=== PATIENT | female | born 1970 | race Asian ===

== ENCOUNTER 2017-07-29 06:43 | Day surgery (SDC) | payer BC, OTHER ==
[2017-07-28 12:38] LABS: CHLORIDE,CL 105 mmol/L (98-107); SODIUM,NA 141 mmol/L (136-145)
[~2017-07-29 06:43] MED LIST: Sodium Chloride 0.9% 10 ML Syringe FLUSH PRN; Sodium Chloride 0.9% 2.5 ML Syringe FLUSH PRN; ceFAZolin 1 GM in Premix Bag 1 BAG IV ONE
[2017-07-29] MEDS ORDERED: Propofol 200 MG/20 ML SDV ONE (07:16)
[2017-07-29] MEDS ORDERED: Ondansetron 4 MG/2 ML SDV ONE (07:16)
[2017-07-29] MEDS ORDERED: fentaNYL 100 MCG/2 ML SDV ONE (07:16)
[2017-07-29] MEDS ORDERED: Midazolam 1 MG/ML 2 ML SDV ONE (07:16)
[2017-07-29] MEDS ORDERED: Dexamethasone 4 MG/ML 5 ML MDV ONE (07:17)
[2017-07-29] MEDS ORDERED: Sugammadex Sodium 200 MG/2 ML VIAL ONE (07:19)
[2017-07-29] MEDS ORDERED: Fluorescein 5 ML Vial ONE (07:28)
[2017-07-29] MEDS ORDERED: Bupivacaine 0.25% 10 ML SDV ONE (07:28)
[2017-07-29] MEDS: Lactated Ringers 1,000 ML IV SCH ×2 (07:31→12:52)
--- NOTE | 2017-07-29 07:41 | PCM.PREANE ---
Preanesthetic Assessment - Anesthesia/Transfusion/Family Hx Anesthesia History: No Prior Anesthesia Family History of Anesthesia Reaction: No Transfusion History: No Prior Transfusion(s) Intubation History: Unknown - Review of Systems General: No Symptoms Pulmonary: No Symptoms Cardiovascular: No Symptoms Gastrointestinal: No Symptoms Neurological: No Symptoms Other: Reports: None - Physical Assessment O2 Sat by Pulse Oximetry: 95 Respiratory Rate: 16 Vital Signs: Last Vital Signs Temp 36.7 C 07/29/17 07:29 Pulse 61 07/29/17 07:29 Resp 16 07/29/17 07:29 BP 137/72 07/29/17 07:29 Pulse Ox 95 07/29/17 07:29 Height: 1.57 m Weight: 55.792 kg ASA Class: 2 Mental Status: Alert & Oriented x3 Airway Class: Mallampati = 2 Dentition: Reports: Normal Dentition Thyro-Mental Finger Breadths: 2 Mouth Opening Finger Breadths: 2 ROM/Head Extension: Full Lungs: Clear to Auscultation, Normal Respiratory Effort Cardiovascular: Regular Rate, Regular Rhythm - Lab Values: Laboratory Last Values WBC 6.43 K/uL (4.0-11.0) 07/28/17 11:20 RBC 5.21 M/uL (4.30-5.90) 07/28/17 11:20 Hgb 15.7 g/dL (12.0-16.0) 07/28/17 11:20 Hct 46.7 % (36.0-46.0) H 07/28/17 11:20 MCV 89.6 fL (80.0-98.0) 07/28/17 11:20 MCH 30.1 pg (27.0-32.0) 07/28/17 11:20 MCHC 33.6 g/dL (31.0-37.0) 07/28/17 11:20 RDW Std Deviation 39.6 fl (28.0-62.0) 07/28/17 11:20 RDW Coeff of Mara 12 % (11.0-15.0) 07/28/17 11:20 Plt Count 280 K/uL (150-400) 07/28/17 11:20 MPV 9.00 fL (7.40-12.00) 07/28/17 11:20 Neut % (Auto) 67.8 % (48.0-80.0) 07/28/17 11:20 Lymph % (Auto) 24.9 % (16.0-40.0) 07/28/17 11:20 [place] % (Auto) 5.1 % (0.0-15.0) 07/28/17 11:20 Eos % (Auto) 1.7 % (0.0-7.0) 07/28/17 11:20 Baso % (Auto) 0.5 % (0.0-1.5) 07/28/17 11:20 Neut # (Auto) 4.4 K/uL (1.4-5.7) 07/28/17 11:20 Lymph # (Auto) 1.6 K/uL (0.6-2.4) 07/28/17 11:20 [place] # (Auto) 0.3 K/uL (0.0-0.8) 07/28/17 11:20 Eos # (Auto) 0.1 K/uL (0.0-0.7) 07/28/17 11:20 Baso # (Auto) 0.0 K/uL (0.0-0.1) 07/28/17 11:20 Nucleated RBC % 0.0 /100WBC 07/28/17 11:20 Nucleated RBCs # 0 K/uL 07/28/17 11:20 Sodium 141 mmol/L (136-145) 07/28/17 11:20 Potassium 4.3 mmol/L (3.5-5.1) 07/28/17 11:20 Chloride 105 mmol/L (98-107) 07/28/17 11:20 Carbon Dioxide 28.4 mmol/L (21.0-32.0) 07/28/17 11:20 BUN 12 mg/dL (7.0-18.0) 07/28/17 11:20 Creatinine 0.7 mg/dL (0.6-1.0) 07/28/17 11:20 Est Cr Clr Drug Dosing 76.89 mL/min 07/28/17 11:20 Estimated GFR (MDRD) > 60.0 ml/min 07/28/17 11:20 Glucose 85 mg/dL (74-106) 07/28/17 11:20 Calcium 9.4 mg/dL (8.5-10.1) 07/28/17 11:20 HCG, Quant < 1.0 mIU/mL 07/28/17 11:20 Blood Type A POSITIVE 07/28/17 11:20 Antibody Screen NEGATIVE 07/28/17 11:20 - Allergies Allergies/Adverse Reactions: Allergies Allergy/AdvReac Type Severity Reaction Status Date / Time No Known Allergies Allergy Verified 07/25/17 08:23 - Blood Blood Available: No - Anesthesia Plan Pre-Op Medication Ordered: None - Acknowledgements Anesthesia Type Planned: General Anesthesia Pt an Appropriate Candidate for the Planned Anesthesia: Yes Alternatives and Risks of Anesthesia Discussed w Pt/Guardian: Yes Pt/Guardian Understands and Agrees with Anesthesia Plan: Yes PreAnesthesia Questionnaire - Past Health History Medical/Surgical History: Denies Medical/Surgical History HEENT History: Reports: Other (See Below) Other HEENT History: wears glasses/contacts Cardiovascular History: Reports: Hypertension Hematologic History: Reports: Anemia, Iron Deficiency - Past Surgical History Head Surgeries/Procedures: Reports: None - SUBSTANCE USE Smoking Status *Q: Never Smoker Recreational Drug Use History: No - HOME MEDS Home Medications: Home Meds Atenolol 25 mg PO DAILY 07/25/17 [History] Docusate Sodium [Colace] 100 mg PO DAILY 07/25/17 [History] Ferrous Sulfate [Slow Fe] 45 mg PO DAILY 07/25/17 [History] - CURRENT (IN HOUSE) MEDS Current Meds: Current Medications Lactated Ringer's (Ringers, Lactated) 1,000 mls @ 100 mls/hr IV ASDIRECTED [facility] Last Admin: 07/29/17 07:31 Dose: 100 mls/hr Sodium Chloride (Saline Flush) 10 ml FLUSH ASDIRECTED PRN PRN Reason: Keep Vein Open Sodium Chloride (Saline Flush) 2.5 ml FLUSH ASDIRECTED PRN PRN Reason: Keep Vein Open Discontinued Medications Bupivacaine HCl (Sensorcaine-Mpf 0.25%) Confirm Administered Dose 10 ml .ROUTE .STK-MED ONE Stop: 07/29/17 07:29 Dexamethasone (Dexamethasone) Confirm Administered Dose 20 mg .ROUTE .STK-MED ONE Stop: 07/29/17 07:18 Fentanyl (Sublimaze) Confirm Administered Dose 100 mcg .ROUTE .STK-MED ONE Stop: 07/29/17 07:17 Fluorescein Sodium (Ak-Fluor) Confirm Administered Dose 5 ml .ROUTE .STK-MED ONE Stop: 07/29/17 07:29 Cefazolin Sodium/Dextrose 1 gm (/ Premix) 50 mls @ 100 mls/hr IV ONETIME ONE Stop: 07/29/17 07:08 Acetaminophen (Ofirmev) Confirm Administered Dose 100 mls @ as directed IV .STK- MED ONE Stop: 07/29/17 07:20 Midazolam HCl (Versed 1 Mg/Ml) Confirm Administered Dose 2 mg .ROUTE .STK-MED ONE Stop: 07/29/17 07:17 Ondansetron HCl (Zofran) Confirm Administered Dose 4 mg .ROUTE .STK-MED ONE Stop: 07/29/17 07:17 Propofol (Diprivan 20 Ml) Confirm Administered Dose 200 mg .ROUTE .STK-MED ONE Stop: 07/29/17 07:17
[2017-07-29] MEDS ORDERED: ceFAZolin 1 GM Vial ONE (08:00)
[2017-07-29] MEDS ORDERED: Sodium Chloride 0.9% 20 ML ONE (08:00)
[2017-07-29] MEDS ORDERED: HYDROmorphone 2 MG/ML SDV ONE (08:33)
[2017-07-29] MEDS ORDERED: Promethazine 25 MG/ML SDV IM PRN (11:07)
[2017-07-29] MEDS ORDERED: Ketorolac 30 MG/ML SDV IVPUSH ONE (11:07)
[2017-07-29] MEDS ORDERED: Ondansetron 4 MG/2 ML SDV IVPUSH PRN (11:07)
[2017-07-29] MEDS ORDERED: Morphine 4 MG/ML Syringe IVPUSH PRN (11:07)
[2017-07-29] MEDS ORDERED: Ketorolac 30 MG/ML SDV IVPUSH PRN (11:07)
[2017-07-29] MEDS ORDERED: Acetaminophen/oxyCODONE 325-5 MG Tab PO PRN ×2 (11:07)
[2017-07-29] MEDS ORDERED: Acetaminophen 1,000 MG in Premix Bag 1 BAG IV PRN (11:17)
[2017-07-29] MEDS ORDERED: Doxycycline 100 MG in Sodium Chloride 0.9% 100 ML IV SCH (11:30)
--- NOTE | 2017-07-29 12:10 | PCM.OPNOTE ---
- General Post-Op/Procedure Note Date of Surgery/Procedure: 07/29/17 Operative Procedure(s): Total Laparoscopic Hysterectomy. Bilateral Salphingectomy. Cystoscopy Findings: 12 weeks sized anteverted fibroid uterus Laparoscopy shows Fibroid uterus Multiple endometriotic deposit noted on the uterus and pelvic side wall Filmy adhesions also noted in the posterior cul -de -sac, simple cystic structures ( 2) formed from this adhesion Pre Op Diagnosis: Abnormal Uterine bleeding secondary to Fibroid uterus Post-Op Diagnosis: Uterine Fibroid. Endometriosis. Pelvic Inflammatory disease Anesthesia Technique: General LMA Primary Surgeon: Lety Rae Secondary Surgeon: Rosa Cazares Pathology: Uterus and Tube Fluid Replacement, Intraop: 1,600 Output, Urine Amount: 115 EBL in mLs: 250 Complications: None Condition: Good Free Text/Narrative:: Intake & Output 07/28/17 07/29/17 07/29/17 22:59 06:59 14:59 Intake Total 1800 Balance 1800
[2017-07-29] MEDS: Doxycycline 100 MG in Sodium Chloride 0.9% 100 ML IV SCH (12:53)
[2017-07-29] MEDS ORDERED: Metoclopramide 10 MG/2 ML SDV IVPUSH ONE (14:00)
[2017-07-29] MEDS: ceFAZolin 1 GM in Premix Bag 1 BAG IV SCH ×2 (14:42→20:06)
[2017-07-29] MEDS: Metoclopramide 10 MG/2 ML SDV IVPUSH SCH (20:43)
[2017-07-29] MEDS: Acetaminophen 1,000 MG in Premix Bag 1 BAG IV SCH (20:46)
[2017-07-30] MEDS: Doxycycline 100 MG in Sodium Chloride 0.9% 100 ML IV SCH (00:17)
[2017-07-30] MEDS: Metoclopramide 10 MG/2 ML SDV IVPUSH SCH (02:25)
[2017-07-30] MEDS: ceFAZolin 1 GM in Premix Bag 1 BAG IV SCH ×2 (02:27→08:31)
[2017-07-30] MEDS: Acetaminophen 1,000 MG in Premix Bag 1 BAG IV SCH (03:07)
[2017-07-30 06:06] LABS: CHLORIDE,CL 106 mmol/L (98-107); SODIUM,NA 141 mmol/L (136-145)
--- NOTE | 2017-07-30 06:28 | PCM48HPAN ---
Post Anesthesia Note - EVALUATION WITHIN 48HRS OF ANESTHETIC Vital Signs in Normal Range: Yes Patient Participated in Evaluation: Yes Respiratory Function Stable: Yes Airway Patent: Yes Cardiovascular Function Stable: Yes Hydration Status Stable: Yes Pain Control Satisfactory: Yes Nausea and Vomiting Control Satisfactory: Yes Mental Status Recovered: Yes Resp Rate: 16
[2017-07-30] MEDS ORDERED: Enoxaparin 40 MG/0.4 ML Syringe SUBCUT ONE (09:13)
[2017-07-30] MEDS ORDERED: Metoclopramide 10 MG/2 ML SDV IVPUSH ONE (09:14)
--- NOTE | 2017-07-30 12:56 | PCM.SURGPN ---
- General Info Date of Service: 07/30/17 Date of Surgery/Procedure: 07/29/17 POD#: 1 Post-Op Diagnosis: Uterine fibroid. Endometriosis Functional Status: Reports: Pain Controlled, Tolerating Diet, Ambulating, Urinating - Review of Systems General: Reports: No Symptoms HEENT: Reports: No Symptoms Pulmonary: Reports: No Symptoms Cardiovascular: Reports: No Symptoms Gastrointestinal: Reports: No Symptoms Genitourinary: Reports: No Symptoms Musculoskeletal: Reports: No Symptoms Skin: Reports: No Symptoms Neurological: Reports: No Symptoms Psychiatric: Reports: No Symptoms - Patient Data Vitals - Most Recent: Last Vital Signs Temp 36.8 C 07/30/17 08:00 Pulse 77 07/30/17 08:00 Resp 16 07/30/17 08:00 BP 123/74 07/30/17 08:00 Pulse Ox 96 07/30/17 08:00 Weight - Most Recent: 55.792 kg I&O - Last 24 Hours: Intake & Output 07/29/17 07/30/17 07/30/17 22:59 06:59 14:59 Intake Total 150 1349 Output Total 1630 Balance 150 -281 Lab Results Last 24 Hrs: Laboratory Results - last 24 hr 07/30/17 07/30/17 Range/Units 05:15 05:15 WBC 13.12 H (4.0-11.0) K/uL RBC 4.43 (4.30-5.90) M/uL Hgb 13.2 (12.0-16.0) g/dL Hct 39.1 (36.0-46.0) % MCV 88.3 (80.0-98.0) fL MCH 29.8 (27.0-32.0) pg MCHC 33.8 (31.0-37.0) g/dL RDW Std Deviation 38.4 (28.0-62.0) fl RDW Coeff of Mara 12 (11.0-15.0) % Plt Count 246 (150-400) K/uL MPV 9.00 (7.40-12.00) fL Neut % (Auto) 79.1 (48.0-80.0) % Lymph % (Auto) 15.2 L (16.0-40.0) % [place] % (Auto) 5.3 (0.0-15.0) % Eos % (Auto) 0.2 (0.0-7.0) % Baso % (Auto) 0.2 (0.0-1.5) % Neut # (Auto) 10.4 H (1.4-5.7) K/uL Lymph # (Auto) 2.0 (0.6-2.4) K/uL [place] # (Auto) 0.7 (0.0-0.8) K/uL Eos # (Auto) 0.0 (0.0-0.7) K/uL Baso # (Auto) 0.0 (0.0-0.1) K/uL Nucleated RBC % 0.0 /100WBC Nucleated RBCs # 0 K/uL Sodium 141 (136-145) mmol/L Potassium 3.6 (3.5-5.1) mmol/L Chloride 106 (98-107) mmol/L Carbon Dioxide 29.9 (21.0-32.0) mmol/L BUN 7 (7.0-18.0) mg/dL Creatinine 0.6 (0.6-1.0) mg/dL Est Cr Clr Drug Dosing 89.70 mL/min Estimated GFR (MDRD) > 60.0 ml/min Glucose 94 (74-106) mg/dL Calcium 8.8 (8.5-10.1) mg/dL Med Orders - Current: Current Medications Discontinued Medications Bupivacaine HCl (Sensorcaine-Mpf 0.25%) Confirm Administered Dose 10 ml .ROUTE .STK-MED ONE Stop: 07/29/17 07:29 Cefazolin Sodium (Ancef) Confirm Administered Dose 1 gm .ROUTE .STK-MED ONE Stop: 07/29/17 08:01 Dexamethasone (Dexamethasone) Confirm Administered Dose 20 mg .ROUTE .STK-MED ONE Stop: 07/29/17 07:18 Enoxaparin Sodium (Lovenox) 40 mg SUBCUT ONETIME ONE Stop: 07/30/17 09:14 Last Admin: 07/30/17 10:08 Dose: 40 mg Fentanyl (Sublimaze) Confirm Administered Dose 100 mcg .ROUTE .STK-MED ONE Stop: 07/29/17 07:17 Fluorescein Sodium (Ak-Fluor) Confirm Administered Dose 5 ml .ROUTE .STK-MED ONE Stop: 07/29/17 07:29 Hydromorphone HCl (Dilaudid) Confirm Administered Dose 2 mg .ROUTE .[facility]-MED ONE Stop: 07/29/17 08:34 Lactated Ringer's (Ringers, Lactated) 1,000 mls @ 100 mls/hr IV ASDIRECTED [facility] Last Admin: 07/29/17 12:52 Dose: 100 mls/hr Cefazolin Sodium/Dextrose 1 gm (/ Premix) 50 mls @ 100 mls/hr IV ONETIME ONE Stop: 07/29/17 07:08 Last Admin: 07/29/17 14:40 Dose: Not Given Acetaminophen (Ofirmev) Confirm Administered Dose 100 mls @ as directed IV .[facility] ONE Stop: 07/29/17 07:20 Sodium Chloride (Normal Saline) Confirm Administered Dose 20 mls @ as directed .ROUTE .[facility] ONE Stop: 07/29/17 08:01 Cefazolin Sodium/Dextrose 1 gm (/ Premix) 50 mls @ 100 mls/hr IV Q6H [facility] Stop: 07/30/17 14:01 Last Admin: 07/30/17 08:31 Dose: 100 mls/hr Doxycycline Hyclate 100 mg/ (Sodium Chloride) 100 mls @ 100 mls/hr IV Q12H [facility] Last Admin: 07/29/17 14:56 Dose: Not Given Acetaminophen 1,000 mg/ Premix 100 mls @ 400 mls/hr IV Q6H PRN PRN Reason: Pain Doxycycline Hyclate 100 mg/ (Sodium Chloride) 100 mls @ 100 mls/hr IV Q12H [facility] Last Admin: 07/30/17 00:17 Dose: 100 mls/hr Acetaminophen 1,000 mg/ Premix 100 mls @ 400 mls/hr IV Q6H [facility] Stop: 07/30/17 02:44 Last Admin: 07/30/17 03:07 Dose: 400 mls/hr Ketorolac Tromethamine (Toradol) 30 mg IVPUSH ONETIME ONE Stop: 07/29/17 11:08 Last Admin: 07/29/17 14:41 Dose: Not Given Ketorolac Tromethamine (Toradol) 30 mg IVPUSH Q6H PRN PRN Reason: Pain (severe 7-10) Stop: 08/03/17 11:07 Metoclopramide HCl (Reglan) 10 mg IVPUSH ONETIME ONE Stop: 07/29/17 14:01 Last Admin: 07/29/17 14:42 Dose: 10 mg Metoclopramide HCl (Reglan) 10 mg IVPUSH Q6H [facility] Stop: 07/30/17 02:31 Last Admin: 07/30/17 02:25 Dose: 10 mg Metoclopramide HCl (Reglan) 10 mg IVPUSH ONETIME ONE Stop: 07/30/17 09:15 Last Admin: 07/30/17 10:08 Dose: 10 mg Midazolam HCl (Versed 1 Mg/Ml) Confirm Administered Dose 2 mg .ROUTE .STK-MED ONE Stop: 07/29/17 07:17 Morphine Sulfate (Morphine) 4 mg IVPUSH Q2H PRN PRN Reason: Pain (severe 7-10) Ondansetron HCl (Zofran) Confirm Administered Dose 4 mg .ROUTE .STK-MED ONE Stop: 07/29/17 07:17 Ondansetron HCl (Zofran) 4 mg IVPUSH Q6H PRN PRN Reason: Nausea/Vomiting Last Admin: 07/29/17 17:13 Dose: 4 mg Oxycodone/Acetaminophen (Percocet 325-5 Mg) 1 tab PO Q4H PRN PRN Reason: Pain (moderate 4-6) Oxycodone/Acetaminophen (Percocet 325-5 Mg) 2 tab PO Q4H PRN PRN Reason: Pain (moderate 4-6) Promethazine HCl (Phenergan) 25 mg IM Q6H PRN PRN Reason: Nausea/Vomiting Propofol (Diprivan 20 Ml) Confirm Administered Dose 200 mg .ROUTE .STK-MED ONE Stop: 07/29/17 07:17 Sodium Chloride (Saline Flush) 10 ml FLUSH ASDIRECTED PRN PRN Reason: Keep Vein Open Sodium Chloride (Saline Flush) 2.5 ml FLUSH ASDIRECTED PRN PRN Reason: Keep Vein Open - Exam Wound/Incisions: Other (Laparoscopic incision with steristrips , mildly stained , changed before discharge ) General: Alert Lungs: Clear to Auscultation Cardiovascular: Regular Rate, Regular Rhythm GI/Abdominal Exam: Normal Bowel Sounds Extremities: Normal Inspection Skin: Warm Neurological: No New Focal Deficit Psy/Mental Status: Alert - Problem List & Annotations (1) Uterine fibroid SNOMED Code(s): 29916492 Code(s): D25.9 - LEIOMYOMA OF UTERUS, UNSPECIFIED Status: Acute - Problem List Review Problem List Initiated/Reviewed/Updated: Yes - My Orders Last 24 Hours: Active Orders 24 hr Category Date Time Status Ready for Discharge [RC] PER UNIT ROUTINE Care 07/30/17 09:18 Active - Assessment Assessment (Free Text/Narrative):: 47 yo s/p TLH/BS, cytoscopy for Uterine fibroid. POD1 stable , patient is ambulating , voiding and tolerating regular diet. Pain control is good - Plan Plan (Free Text/Narrative):: IV reglan 10mg before discharge Lovenox 40mg Discharge home
--- NOTE | 2017-07-30 14:22 | OR ---
SURGEON: MAMTA ANDERSON PREOPERATIVE DIAGNOSIS: Abnormal uterine bleeding secondary to uterine fibroids. POSTOPERATIVE DIAGNOSES: Abnormal uterine bleeding secondary to uterine fibroids. Endometriotic deposits along pelvic side wall Filmy Pelvic adhesions PROCEDURE: Total laparoscopic hysterectomy, bilateral salpingectomy, and cystoscopy. IVF: 1600ml EBL: 250ml U/O ; 115ml FINDINGS: EUA revealed a 12 week sized anteverted uterus Laparoscopy showed : Bulky fibroid uterus. Multiple endometriotic deposits along pelvic side wall. Filmy adhesions in the posterior cul- de -sac with formation of 2 tiny cystic structures HISTORY ABOUT THE PATIENT: The patient is a 47-year-old, who was having abnormal uterine bleeding. Upon evaluation, the patient had ultrasound done and she noted to have uterine fibroids. The patient was pretreated with Lupron to reduce the volume of the uterus to allow for more conservative approach. The patient had an endometrial biopsy done, which was negative. PROCEDURE IN DETAIL: The patient was taken to the OR with the IV fluid running . A pneumatic compression stockings was applied to the lower extremities. General anesthesia was performed without difficulty. A dorsolithotomy position was obtained with Huey stirrups. Both arms were tucked on both sides. An examination under anesthesia showed a 12-week size uterus. The patient was prepared and draped in the usual sterile fashion. A Ann catheter was inserted. The bivalve speculum was placed to expose the cervix. The anterior lip of the cervix was grasped with an allis forcep.The uterus was then sounded to 8 cm. An Advincula Slot Machine Mechanic was placed through the cervix to the uterus. The tip of the advincula was inflated. The Occluder balloon was also inflated. Attention was then turned to the abdomen. Marcaine was iinfiltrated into the subumbilical fold. A small incision was made at the umbilical fold, and the abdomen was entered via direct entry with the fiberoptic trocar. Upon confirmation of entry into the peritoneal cavity, the CO2 gas was then insufflated into the abdomen to a pressure of 15 mmHg. Intraabdominal survey revealed normal-appearing liver, gallbladder, and spleen. The pelvic anatomy was noted above. Again, two 5 mm trocars were inserted into bilateral lower quadrants two fingerbreadths medial and anterior to the anterior superior iliac spine and diagonal to the umbilicus. The patient was placed in the Trendelenburg position to facilitate pelvic exposure. Then, both ureters were identified and the hysterectomy started. On the right and the left, The fallopian tube was identified and the LigaSure device was used to transect the fallopian tube all the way to the level of the uterus, and then the round ligament was also identified and also transected to seperate the broad ligament.The ovarian ligament was also transected off the body of the uterus. Then, the bladder flap was created with the aid of the LigaSure device and harmonic. The bladder was dissected off the lower uterine segment and upper vagina. Also, the posterior peritoneum was exposed to the level of the uterosacral , to exposure the uterine vessels , after being skeletonized with the aid of the LigaSure device and Harmonic. The Advincula Slot Machine Mechanic was always kept in tension in order to avoid the ureter injury. The LigaSure device was then used to coagulate the uterine vessel at the colpotomy junction and above. With the aid of the Harmonic device, the vagina was entered and scored circumferentially at the cervicovaginal junction. The uterosacral and cardinal ligament were completely detached from the cervix. After completion of this, the attention was then placed to the vagina, where the manipulator bulb was deflated, and the cervix and the uterus were taken out through the vagina. The vaginal colpotomy that was created was identified. A David stitch was placed from the posterior vagina to the uterosacrals through the peritoneum back to the uterosacrals on the other side. The vaginal incision was then stitched in a transverse fashion. A David's was then tied up to elevate the vagina, and cystoscopy was then performed that showed bilateral jets and bilateral integrity was confirmed. Attention was then paid again to the abdomen for a laparoscopy. The incision was noted to be hemostatic. Hemostasis was confirmed intraabdominally with the pneumoperitoneum reduced to about 5 mmHg. The trocars were then removed under direct guidance. The instruments were removed from the abdomen. The laparoscopic incision was then stitched with 4-0 Monocryl. Steri-Strips were placed. Good hemostasis was noted on the abdomen. The vagina was then inspected again, and the vaginal incision was noted to be hemostatic. All instrument count and pad count were correct x2. The patient was taken to the recovery room in stable condition. JUDAH BILLINGSLEY /[id number] MTDD
== END 2017-07-30 09:45 | disposition home or self-care (01) ==
LOC: MW.SDS 06:43 → MW.MS 11:59 → MW.SDS 07-30 09:45
PROVIDERS: ATTEND Obstetrics & Gynecology
DX: D25.1 Intramural leiomyoma of uterus (principal); D25.0 Submucous leiomyoma of uterus; D25.2 Subserosal leiomyoma of uterus; N88.8 Other specified noninflammatory disorders of cervix uteri; N73.6 Female pelvic peritoneal adhesions (postinfective); D50.9 Iron deficiency anemia, unspecified; N76.0 Acute vaginitis; Z79.899 Other long term (current) drug therapy
CPT/HCPCS: 36415; 58552; 80048; 84702; 85025; 86850; 86900; 86901; J0690; J1100; J1170; J1650; J2250; J2405; J2765; J3010; J3490; J7030; J7120; J2704

== ENCOUNTER 2023-12-04 09:16 | Day surgery (SDC) | payer BC, OTHER ==
[~2023-12-04 09:16] MED LIST changes: +Sodium Chloride 0.9% 20 ML SDV IV PRN; -ceFAZolin 1 GM in Premix Bag 1 BAG IV ONE
[2023-12-04] MEDS: Lactated Ringers 1,000 ML IV SCH (09:35)
[2023-12-04] MEDS ORDERED: Lidocaine 2% 5 ML SDV ONE (10:50)
[2023-12-04] MEDS ORDERED: propofoL 50 ML ONE (10:50)
== END 2023-12-04 12:30 | disposition home or self-care (01) ==
LOC: MW.SDS 09:16
PROVIDERS: ATTEND Surgery
DX: Z12.11 Encounter for screening for malignant neoplasm of colon (principal); D12.8 Benign neoplasm of rectum; R19.5 Other fecal abnormalities; E78.00 Pure hypercholesterolemia, unspecified; D50.9 Iron deficiency anemia, unspecified; I10 Essential (primary) hypertension; Z79.899 Other long term (current) drug therapy
CPT/HCPCS: 45381; 45385; J2704; J7120; 00811; J3490

== ENCOUNTER 2025-02-10 09:09 | Day surgery (SDC) | payer BC ==
[~2025-02-10 09:09] MED LIST changes: -Sodium Chloride 0.9% 20 ML SDV IV PRN; +propofoL 500 MG/50 ML 50 ML ONE
[2025-02-10] MEDS: Lactated Ringers 1,000 ML IV SCH (09:35)
== END 2025-02-10 12:05 | disposition home or self-care (01) ==
LOC: MW.SDS 09:09
PROVIDERS: ATTEND Surgery
DX: Z12.11 Encounter for screening for malignant neoplasm of colon (principal); K62.1 Rectal polyp; I10 Essential (primary) hypertension; E78.5 Hyperlipidemia, unspecified; Z79.899 Other long term (current) drug therapy
CPT/HCPCS: 45380; J2704; J7120; 00811